=== PATIENT | male | born 1950 | race Hispanic/Latino ===

== ENCOUNTER 2024-06-01 09:51 | Emergency (ER) | payer MEDICARE ==
[~2024-06-01] VITALS: Ht 172.7 cm; Wt 72.6 kg
[2024-06-01 10:37] LABS: BASOPHILS % 0.3 % (0.0-1.0); HEMATOCRIT 41.4 % (38.2-49.6); HEMOGLOBIN 12.9 g/dL (14.0-18.0); LYMPHOCYTES # (AUTO) 0.7 (1.0-3.2); LYMPHOCYTES % 4.1 % (18.0-39.1); MEAN CORPUSCULAR HEMOGLOBIN 27.2 pg (28-32); MEAN CORPUSCULAR HGB CONC 31.2 g/dL (31-35); MEAN CORPUSCULAR VOLUME 87.2 fL (81-99); MONOCYTES # (AUTO) 1.7 (0.2-0.8); MONOCYTES % 10.6 % (4.4-11.3); NEUTROPHILS # (AUTO) 13.5 (2.1-6.9); NEUTROPHILS % 84.4 % (38.7-80.0); PLATELET COUNT 190 x10e3/uL (140-360); RED BLOOD COUNT 4.75 x10e6/uL (4.3-5.7); RED CELL DISTRIBUTION WIDTH 12.3 % (11.7-14.4)
[2024-06-01 10:42] LABS: INR 1.15; PROTHROMBIN TIME 15.3 seconds (11.9-14.5)
[2024-06-01 10:43] LABS: PARTIAL THROMBOPLASTIN TIME 32.4 seconds (23.8-35.5)
[2024-06-01 10:44] LABS: CLARITY,URINE CLEAR (CLEAR); COLOR,URINE YELLOW (YELLOW); GLUCOSE, URINE NEGATIVE (NEGATIVE); KETONES,URINE 2+ (NEGATIVE); LEUKOCYTE ESTERASE ,URINE TRACE (NEGATIVE); NITRITE,URINE NEGATIVE (NEGATIVE); PH,URINE 7 (5 - 7); PROTEIN,URINE DIPSTICK NEGATIVE (NEGATIVE)
[2024-06-01 10:45] LABS: BACTERIA,URINE FEW /HPF; BILIRUBIN,URINE NEGATIVE (NEGATIVE); EPITHELIAL CELLS,URINE FEW /LPF; URINE UROBILINOGEN 0.2 mg/dL (0.2 - 1)
[2024-06-01] MEDS: ACETAMINOPHEN 325 MG TAB PO ONE (10:50)
[2024-06-01] MEDS: SODIUM CHLORIDE 0.9% 1000ML 1,000 ML IV ONE (10:50)
[2024-06-01 11:29] LABS: ALBUMIN 3.8 g/dL (3.5-5.0); BILIRUBIN,TOTAL 1.5 mg/dL (0.2-1.2); CALCIUM 9.5 mg/dL (8.4-10.2); CREATININE, SERUM 1.2 mg/dL (0.72-1.25); TOTAL PROTEIN 7.7 g/dL (6.5-8.1)
[2024-06-01 12:03] VITALS: PULSE 64; RESP 16; TEMP 100.2
[2024-06-01] MEDS ORDERED: LEVOFLOXACIN750 MG PO (12:47)
[2024-06-01 13:01] VITALS: BP 134/78; PULSE 85; RESP 18; TEMP 98.2; O2SAT 100
[2024-06-01] MEDS ORDERED: IOPAMIDOL 370 MG/ML 100 ML INFUS..BTL INJ ONE (13:08)
== END 2024-06-01 13:02 | disposition home or self-care (01) ==
LOC: ER 10:04
DX: R50.9 Fever, unspecified (principal); J18.9 Pneumonia, unspecified organism; R10.30 Lower abdominal pain, unspecified; I10 Essential (primary) hypertension; E78.5 Hyperlipidemia, unspecified
CPT/HCPCS: 36415; 71045; 74177; 80053; 81001; 83605; 85025; 85610; 85730; 87040; 87086; 99284; J0696; J7030; Q9967